=== PATIENT | female | born 1995 ===

== ENCOUNTER 2018-10-20 11:41 | Emergency (ER) | payer OTHER ==
[2018-10-20 11:54] VITALS: BP 146/88; PULSE 97; RESP 19; TEMP 97.8; O2SAT 100
[2018-10-20] MEDS ORDERED: Amoxicillin-Clav 875-125 mg Tab PO STA (12:26)
[2018-10-20] MEDS ORDERED: Amoxicillin-Clav 875-125 mg Tab PO ONE (12:32)
--- NOTE | 2018-10-20 13:09 | C.PDOC ---
History Of Present Illness 23 year old female dx with HPV: genital warts (6 years ago) presents to the ED for evaluation of difficulty swallowing and bumps on top and under the tongue for 1 day. Patient reports prior visit to [facility] where she was treated with an unknown injection and prescribed lab tests (including GILDARDO, RPR, ESR, and others). Patient has not had her blood drawn. Denies fever, nausea, vomiting, bumps to other areas of the body, and any other associated symptoms. Time Seen by Provider: 10/20/18 12:06 Chief Complaint (Nursing): ENT Problem History Per: Patient History/Exam Limitations: None Onset/Duration Of Symptoms: Days (x1 day ) Current Symptoms Are (Timing): Still Present Past Medical History Reviewed: Historical Data, Nursing Documentation, Vital Signs Vital Signs: Last Vital Signs Temp 97.8 F 10/20/18 11:51 Pulse 97 H 10/20/18 11:51 Resp 19 10/20/18 11:51 BP 146/88 10/20/18 11:51 Pulse Ox 100 10/20/18 11:51 Family History: States: Unknown Family Hx - Social History Hx Alcohol Use: No Hx Substance Use: No - Immunization History Hx Tetanus Toxoid Vaccination: Yes Hx Influenza Vaccination: No Hx Pneumococcal Vaccination: No Review Of Systems Constitutional: Negative for: Fever Gastrointestinal: Negative for: Nausea, Vomiting Skin: Positive for: Other (bumps: on the top and under the tongue. ) Physical Exam - Physical Exam Appears: Well, Non-toxic, No Acute Distress Skin: Warm, Dry, Other (top and bottom the tongue: 0.5cm soft nodules to the top and under the tongue with no evidence of induration or fluctuance.) Head: Atraumatic, Normacephalic Eye(s): bilateral: Normal Inspection, PERRL, EOMI Tongue: No Swelling, No Bleeding Lips: Normal Appearing, No Swelling Throat: Normal, No Erythema, No Exudate Neck: Normal ROM, Supple Lymphatic: Normal Exam Chest: Symmetrical, No Tenderness Cardiovascular: Rhythm Regular Respiratory: Normal Breath Sounds Extremity: Normal ROM Neurological/Psych: Oriented x3, Normal Speech Gait: Steady ED Course And Treatment O2 Sat by Pulse Oximetry: 100 (RA) Pulse Ox Interpretation: Normal Medical Decision Making Medical Decision Making: Plan: -Augmentin Prednisone Progress/Update: Patient stable for discharge home. Prescribed Prednisone and Augmentin. Disposition - Disposition Referrals: Jasvir Ngo MD [Staff Provider] - Disposition: HOME/ ROUTINE Disposition Time: 13:10 Condition: STABLE Additional Instructions: Follow up with the medical doctor/clinic within 1-2 days. Return if worsened. Prescriptions: Amoxicillin/Clavulanate [Augmentin 875 MG-125 MG] 1 tab PO BID #14 tab predniSONE [Prednisone] 20 mg PO BID #10 tab Instructions: Sore Throat, Adult (DC) Forms: [employer] (English) Print Language: AMERICAN - Clinical Impression Clinical Impression: Pharyngitis, Nodule of soft tissue - PA / COMPUTER INFORMATION SCIENCE PROFESSOR / Resident Statement MD/DO has reviewed & agrees with the documentation as recorded. - Scribe Statement The provider has reviewed the documentation as recorded by the Scribe (Tabatha Edwards) All medical record entries made by the Scribe were at my direction and personally dictated by me. I have reviewed the chart and agree that the record accurately reflects my personal performance of the history, physical exam, medical decision making, and the department course for this patient. I have also personally directed, reviewed, and agree with the discharge instructions and disposition.
== END 2018-10-20 13:25 | disposition home or self-care (01) ==
LOC: C.ER 11:41
DX: J02.9 Acute pharyngitis, unspecified (principal); K14.8 Other diseases of tongue